=== PATIENT | female | born 1970 | race Caucasian/White ===

== ENCOUNTER 2017-11-01 18:13 | Emergency (ER) | payer SELFPAY ==
[2017-11-01 18:21] VITALS: BP 148/89; PULSE 98; RESP 20; TEMP 98.9; O2SAT 99
--- NOTE | 2017-11-01 19:22 | RADRPT ---
EXAM DATE/TIME: 11/01/2017 19:09 [place] COMPARISON: No previous studies available for comparison. INDICATIONS : Shortness of breath and chest pain. MEDICAL HISTORY : None. SURGICAL HISTORY : None. ENCOUNTER: Initial ACUITY: 3 days PAIN SCORE: 4/10 LOCATION: Bilateral chest FINDINGS: PA and lateral views of the chest demonstrate the lungs to be symmetrically aerated without evidence of mass, infiltrate or effusion. The cardiomediastinal contours are unremarkable. Osseous structure s are intact. CONCLUSION: No evidence of acute cardiopulmonary disease. Yash Roberts MD on November 01, 2017 at 19:20 Board Certified Radiologist. This report was verified electronically.
[2017-11-01] MEDS ORDERED: VIST25CA PO (19:31)
[2017-11-01] MEDS ORDERED: VENL1CAP38 PO (19:31)
[2017-11-01] MEDS ORDERED: TRAZ100T10 PO (19:31)
[2017-11-01] MEDS ORDERED: OMEP1CAP84 PO (19:31)
--- NOTE | 2017-11-01 19:34 | PD ---
HPI Chief Complaint: Psychiatric Symptoms Time Seen by Provider: 19:31 Travel History International Travel<30 days: No Contact w/Intl Traveler<30days: No Traveled to known affect area: No History of Present Illness HPI Patient is a [place]ic-speaking patient whom I interviewed and asked questions in her [place] language. Patient comes in complaining of only a left-sided chest burning sensation intermittently occurring rated about a 4 out of 10, and currently she is pain-free. however c/o burning on urination/frequency, but no urine color change Patient denies any known drug allergies Patient states that she only has a history of depression for which she is being treated with Effexor, Vistaril and trazodone Past surgical history significant only for 1 , patient is a with 2 stillbirths PFSH Past Medical History Depression: Yes Diabetes: No Patient Takes Glucophage: No Diminished Hearing: No Immunizations Current: Yes Tetanus Vaccination: > 5 Years ?: Unknown : 7 Para: 5 Miscarriage: 2 Past Surgical History Surgical History: No Previous Surgery Section: Yes Social History Alcohol Use: No Tobacco Use: No Allergies-Medications (Allergen,Severity, Reaction): Coded Allergies: No Known Allergies (Unverified , 11/01/17) Reported Meds & Prescriptions Reported Meds & Active Scripts Active Reported Trazodone (Trazodone HCl) 100 Mg Tablet 100 Mg PO HS Omeprazole-Sodium Bicarbonate 40-1,100 Mg Cap 1 Cap PO DAILY Effexor XR 24 HR (Venlafaxine HCl) 37.5 Mg Cap 50 Mg PO DAILY Vistaril (Hydroxyzine Pamoate) 25 Mg Cap 25 Mg PO TID PRN Review of Systems General / Constitutional: No: Fever Eyes: No: Visual changes HENT: No: Headaches Cardiovascular: Positive: Chest Pain or Discomfort Respiratory: No: Shortness of Breath Gastrointestinal: No: Abdominal Pain Genitourinary: No: Dysuria Musculoskeletal: No: Pain Skin: No Rash Neurologic: No: Weakness Psychiatric: No: Depression Endocrine: No: Polydipsia Hematologic/Lymphatic: No: Easy Bruising Physical Exam Narrative GENERAL: SKIN: Warm and dry. HEAD: Atraumatic. Normocephalic. EYES: Pupils equal and round. No scleral icterus. No injection or drainage. ENT: No nasal bleeding or discharge. Mucous membranes pink and moist. NECK: Trachea midline. No JVD. CARDIOVASCULAR: Regular rate and rhythm. RESPIRATORY: No accessory muscle use. Clear to auscultation. Breath sounds equal bilaterally. GASTROINTESTINAL: Abdomen soft, non-tender, nondistended. MUSCULOSKELETAL: Extremities without clubbing, cyanosis, or edema. No obvious deformities. NEUROLOGICAL: Awake and alert. No obvious cranial nerve deficits. Motor grossly within normal limits. Five out of 5 muscle strength in the arms and legs. Normal speech. PSYCHIATRIC: Appropriate mood and affect; insight and judgment normal. Data Data Last Documented VS Vital Signs Date Time Temp Pulse Resp B/P (MAP) Pulse Ox O2 Delivery O2 Flow Rate FiO2 11/01/17 18:21 98.9 98 20 148/89 (108) 99 Orders Orders Complete Blood Count With Diff (11/01/17 18:35) Comprehensive Metabolic Panel (11/01/17 18:35) Urinalysis - C+S If Indicated (11/01/17 18:35) Ed Urine Pregnancytest Poc (11/01/17 18:35) Psych Screen (11/01/17 18:35) Drug Screen, Random Urine (11/01/17 18:35) Alcohol (Ethanol) (11/01/17 18:35) Lipase (11/01/17 18:35) Electrocardiogram (11/01/17 ) Chest, Pa & Lat (11/01/17 ) Urine Culture (11/01/17 19:46) Labs Laboratory Tests Test 11/01/17 19:41 11/01/17 19:46 White Blood Count 15.0 TH/MM3 Red Blood Count 4.63 MIL/MM3 Hemoglobin 14.2 GM/DL Hematocrit 41.1 % Mean Corpuscular Volume 88.8 FL Mean Corpuscular Hemoglobin 30.7 PG Mean Corpuscular Hemoglobin Concent 34.6 % Red Cell Distribution Width 13.3 % Platelet Count 361 TH/MM3 Mean Platelet Volume 6.8 FL Neutrophils (%) (Auto) 61.8 % Lymphocytes (%) (Auto) 29.6 % Monocytes (%) (Auto) 7.5 % Eosinophils (%) (Auto) 0.7 % Basophils (%) (Auto) 0.4 % Neutrophils # (Auto) 9.3 TH/MM3 Lymphocytes # (Auto) 4.5 TH/MM3 Monocytes # (Auto) 1.1 TH/MM3 Eosinophils # (Auto) 0.1 TH/MM3 Basophils # (Auto) 0.1 TH/MM3 CBC Comment DIFF FINAL Differential Comment Blood Urea Nitrogen 8 MG/DL Creatinine 0.70 MG/DL Random Glucose 104 MG/DL Total Protein 8.2 GM/DL Albumin 4.1 GM/DL Calcium Level 9.3 MG/DL Alkaline Phosphatase 85 U/L Aspartate Amino Transf (AST/SGOT) 19 U/L Alanine Aminotransferase (ALT/SGPT) 36 U/L Total Bilirubin 0.5 MG/DL Sodium Level 139 MEQ/L Potassium Level 3.7 MEQ/L Chloride Level 106 MEQ/L Carbon Dioxide Level 25.4 MEQ/L Anion Gap 8 MEQ/L Estimat Glomerular Filtration Rate 89 ML/MIN Lipase 244 U/L Ethyl Alcohol Level LESS THAN 3 MG/DL Urine Color YELLOW Urine Turbidity HAZY Urine pH 8.0 Urine Specific [place] 1.009 Urine Protein TRACE mg/dL Urine Glucose (UA) NEG mg/dL Urine Ketones 10 mg/dL Urine Occult Blood NEG Urine Nitrite POS Urine Bilirubin NEG Urine Urobilinogen LESS THAN 2.0 MG/DL Urine Leukocyte Esterase MOD Urine RBC 1 /hpf Urine WBC 11 /hpf Urine Squamous Epithelial Cells 48 /hpf Urine Transitional Epithelial Cells <1 /hpf Urine Bacteria MANY /hpf Microscopic Urinalysis Comment CULTURE INDICATED Urine Opiates Screen NEG Urine Barbiturates Screen NEG Urine Amphetamines Screen NEG Urine Benzodiazepines Screen NEG Urine Cocaine Screen NEG Urine Cannabinoids Screen NEG MDM Medical Decision Making Medical Screen Exam Complete: Yes Emergency Medical Condition: Yes Medical Record Reviewed: Yes Interpretation(s) EKG shows normal sinus rhythm, 84 bpm, normal intervals, no evidence of any STEMI pattern Differential Diagnosis Chest pain rule out STEMI versus pneumonia versus pleural effusion versus pulmonary embolus Narrative Course CBC shows reactive leukocytosis, no anemia, no anemia normal platelet count no left shift Electrolytes are all within normal limits normal creatinine liver and pancreatic functions UA significant for UTI Patient's negative for any alcohol and negative tox screen Diagnosis Primary Impression: UTI Additional Impression: Noncardiac chest pain Patient Instructions: General Instructions, Noncardiac Chest Pain (ED), Urinary Tract Infection in Women (DC) Scripts Nitrofurantoin Monohydrate Macrocrystals (Macrobid) 100 Mg Capsule 100 MG PO BID for Infection for 7 Days, #14 CAP 0 Refills Prov: Diomedes Nguyen MD 11/01/17 Disposition: 01 DISCHARGE HOME Condition: Stable Diomedes Nguyen MD Nov 01, 2017 19:34
[2017-11-01 20:10] LABS: ALBUMIN 4.1 GM/DL (3.4-5.0); AST (GOT) 19 U/L (15-37); BICARBONATE 25.4 MEQ/L (21.0-32.0); BLOOD UREA NITROGEN 8 MG/DL (7-18); CALCIUM 9.3 MG/DL (8.5-10.1); CHLORIDE 106 MEQ/L (98-107); GLOMERULAR FILTRATION RATE 89 ML/MIN (>89); GLUCOSE,RANDOM 104 MG/DL (74-106); SODIUM (NA) 139 MEQ/L (136-145)
[2017-11-01 20:11] LABS: ALT (GPT) 36 U/L (10-53)
[2017-11-01 20:14] LABS: ALKALINE PHOSPHATASE 85 U/L (45-117); TOTAL BILIRUBIN ADULT 0.5 MG/DL (0.2-1.0); TOTAL PROTEIN 8.2 GM/DL (6.4-8.2)
[2017-11-01 20:15] LABS: AUTOMATED NEUTROPHIL # 9.3 TH/MM3 (1.8-7.7); BASOPHIL # 0.1 TH/MM3 (0-0.2); BASOPHIL % 0.4 % (0.0-2.0); EOSINOPHIL # 0.1 TH/MM3 (0-0.4); EOSINOPHIL % 0.7 % (0.0-4.0); HEMATOCRIT 41.1 % (35.0-46.0); HEMOGLOBIN 14.2 GM/DL (11.6-15.3); LYMPH % 29.6 % (9.0-44.0); LYMPHOCYTE # 4.5 TH/MM3 (1.0-4.8); MEAN CELL VOLUME 88.8 FL (80.0-100.0); MEAN CORPUSCULAR HEMOGLOBIN 30.7 PG (27.0-34.0); MEAN CORPUSCULAR HGB CONC 34.6 % (32.0-36.0); MEAN PLATELET VOLUME 6.8 FL (7.0-11.0); MONO % 7.5 % (0.0-8.0); MONOCYTE # 1.1 TH/MM3 (0-0.9); NEUT % 61.8 % (16.0-70.0); PLATELET COUNT 361 TH/MM3 (150-450); RED BLOOD COUNT 4.63 MIL/MM3 (4.00-5.30); RED CELL DISTRIBUTION WIDTH 13.3 % (11.6-17.2)
[2017-11-01 20:18] LABS: BACTERIA, URINE MANY /hpf; BILIRUBIN, URINE NEG (NEG); BLOOD, URINE NEG (NEG); GLUCOSE,URINE NEG (NEG); KETONE, URINE 10 mg/dL (NEG); NITRITE,URINE POS (NEG); SQUAMOUS EPITHELIAL CELL URINE 48 /hpf (0-5); TRANSITIONAL EPI CELLS, URINE <1 /hpf; URINE COLOR YELLOW (YELLW/STRAW); URINE LEUKOCYTE ESTERASE MOD (NEG)
[2017-11-01] MEDS ORDERED: MACR100C2 PO (20:30)
[2017-11-01] MEDS ORDERED: NITROFURANTOIN MONOHYD MACROCR 100 MG CAP PO ONE (20:45)
--- NOTE | 2017-11-02 14:22 | EKG ---
Date Performed: 11/01/2017 Time Performed: 20:06:52 PTAGE: 47 years EKG: Sinus rhythm NORMAL ECG NO PREVIOUS TRACING DOCTOR: Cherelle Story Interpretating Date/Time 11/02/2017 14:20:16
== END 2017-11-01 20:54 | disposition home or self-care (01) ==
LOC: NEPD 18:13
DX: N39.0 Urinary tract infection, site not specified (principal); R07.89 Other chest pain; F32.9 Major depressive disorder, single episode, unspecified; Z79.899 Other long term (current) drug therapy
CPT/HCPCS: 71046; 80053; 80307; 81001; 83690; 84703; 85025; 87077; 87086; 87186; 93005; 99285